=== PATIENT | female | born 1945 | race Asian ===

== ENCOUNTER 2017-05-20 08:50 | Outpatient (CLI) | payer MEDICARE, OTHER | END 2017-05-20 08:51 | disposition home or self-care (01) | LOC: DI 08:50 | DX: R01.1 Cardiac murmur, unspecified (principal); I51.7 Cardiomegaly | CPT/HCPCS: 93306 ==

== ENCOUNTER 2018-12-25 06:41 | Day surgery (SDC) | payer MEDICARE, OTHER ==
[~2018-12-25 06:41] MED LIST: CYCLOPENTOLATE 1% OPHTH DROPS 2 ML ONE; KETOROLAC 0.45% OPHTH DROPS ONE; PHENYLEPHRINE 2.5% OPHTH 2 ML DROPS ONE; PROPARACAINE 0.5% OPHTH DROPS 15 ML ONE
[2018-12-25] MEDS ORDERED: fentaNYL 100 MCG/2 ML VIAL IVP ONE (06:42)
[2018-12-25] MEDS ORDERED: MIDAZOLAM 2 MG/2 ML VIAL IVP ONE (06:42)
[2018-12-25] MEDS ORDERED: KETOROLAC 0.45% OPHTH DROPS RIGHTEYE ONE (07:00)
[2018-12-25] MEDS ORDERED: CYCLOPENTOLATE 1% OPHTH DROPS 2 ML RIGHTEYE ONE (07:00)
[2018-12-25] MEDS ORDERED: PHENYLEPHRINE 2.5% OPHTH 2 ML DROPS RIGHTEYE ONE (07:00)
[2018-12-25] MEDS ORDERED: PROPARACAINE 0.5% OPHTH DROPS 15 ML RIGHTEYE ONE (07:00)
[2018-12-25] MEDS ORDERED: LACTATED RINGERS 500 ML IV ONE (07:05)
--- NOTE | 2018-12-25 07:27 | ANESTHESIA ---
Pre-Anesthesia VS, & Labs - Diagnosis Right senile combined cataract - Procedure Right phaco with IOL implant Vital Signs: Temp Pulse Resp BP Pulse Ox 36.4 C L 61 16 161/77 H 100 12/25/18 06:54 12/25/18 06:54 12/25/18 06:54 12/25/18 06:54 12/25/18 06:54 Height 5 ft 4 in Weight (kg) 69 kg - NPO >8 hours - Is Patient ?: No - Lab Results Current Lab Results: Laboratory Tests 12/25/18 07:05: POC Whole Bld Glucose 99 Lab results reviewed: Yes Home Medications and Allergies Amlodipine Besylate 10 mg PO DAILY 10/09/18 Aspirin [Aspirin EC] 81 mg PO DAILY 10/09/18 Simvastatin 40 mg PO DAILY 10/09/18 metFORMIN [Glucophage] 500 mg PO ONCE 10/09/18 Allergies/Adverse Reactions: Allergies Allergy/AdvReac Type Severity Reaction Status Date / Time No Known Drug Allergies Allergy Verified 10/09/18 09:07 Anes History & Medical History - Anesthetic History Anesthesia Complications: reports: No previous complications Family history of Anesthesia Complications: Denies Family history of Malignant Hyperthermia: Denies - Medical History Cardiovascular: reports: Hypertension, High cholesterol Pulmonary: reports: Tuberculosis Gastrointestinal: reports: None Urinary: reports: None Neuro: reports: None Musculoskeletal: reports: Osteoarthritis Endocrine/Autoimmune: reports: Type 2 diabetes Skin: reports: None Smoking Status: Former smoker Psychosocial: reports: No issues indicated, Anxiety Exam General: Alert, Oriented x3, Cooperative Dental: Dentures full Upper, Dentures full Lower Mouth Opening: Greater than 4 Fingerbreadths Neck Mobility: Reduced Mallampati classification: II Thyromental Distance: greater than 6 cm Respiratory: Lungs clear Cardiovascular: Regular rate Neurological: Normal speech Mental/Cognitive Status: Alert/Oriented X3 Cognitive Status: Within normal limits Plan Anesthesia Type: MAC Consent for Procedure(s) Verified and Reviewed: Yes Code Status: Attempt Resuscitation ASA classification: 2-Mild systemic disease Is this case an emergency?: No
[2018-12-25] MEDS ORDERED: BSS/LIDOCAINE/EPINEPHRINE 1 ML SYRINGE IO ONE ×2 (08:10)
[2018-12-25] MEDS ORDERED: VANCOMYCIN OPHTHALMI 8MG/0.8ML 8 MG/0.8 ML SYRINGE IO ONE (08:10)
[2018-12-25] MEDS ORDERED: BRIMONIDINE 0.2% OPHTH DROPS 5 ML OPTH ONE (08:10)
[2018-12-25] MEDS ORDERED: TRIAMCIN/MOXIFLOX OPHTHALMIC 0.6 ML VIAL IO ONE ×2 (08:10)
[2018-12-25] MEDS ORDERED: EPINEPHrine 1 MG/ML AMP IVP ONE (08:10)
[2018-12-25] MEDS ORDERED: CHONDR SULF/HYALURONATE SYRINGE IO ONE (08:10)
[2018-12-25] MEDS ORDERED: TIMOLOL 0.5% OPHTH DROPS OPTH ONE (08:10)
[2018-12-25 08:41] VITALS: BP 127/64
--- NOTE | 2018-12-25 09:48 | OPERATIVE REPORT ---
DATE OF SERVICE: 12/25/2018 Physician: Melquiades Burton MD PREOPERATIVE DIAGNOSIS: Visually significant cataract, right eye. This was her second cataract surg jackie. Cataract surgery on the left eye was performed on 10/09/2018. POSTOPERATIVE DIAGNOSIS: Visually significant cataract, right eye. This was her second cataract katrin uzma. Cataract surgery on the left eye was performed on 10/09/2018. PROCEDURE: Phacoemulsification with posterior chamber intraocular lens implant, right eye. SURGEON: Melquiades Burton MD ANESTHESIA: Monitored anesthesia care. COMPLICATIONS: None. OPERATIVE INDICATIONS: This is a 73-year-old woman with progressive vision loss in the right eye due to 2+ nuclear sclerotic, 1-2+ cortical and trace posterior subcapsular cataract. Best corrected vis ual acuity was 20/70 with glare to 20/150 in the right eye. Indications for surgery were overall dec rease in vision, difficulty reading, difficulty seeing words, closed caption or game scores on TV, di fficulty seeing street signs, difficulty driving in low light or at night, difficulty driving at [place] because of headlights from other vehicles, and difficulty with glare or bright lights in any situat ion. She was consented at length concerning risks and benefits of cataract surgery, after which she expressed a desire to proceed with surgery. OPERATIVE PROCEDURE: Patient was taken into OR #3 and placed under monitored anesthesia care. A katrin gical timeout was conducted confirming the correct patient, correct procedure, and correct surgical s ite. She was given topical anesthesia, then prepped and draped in the usual sterile fashion. The ey e was entered at the 12 and 9 o'clock positions. Intracameral Shugarcaine was injected into the ante rior chamber, followed by Viscoat. A continuous-tear curvilinear capsulorrhexis was performed. The nucleus was hydrodissected and phacoemulsified. The cortex was evacuated using automated infusion an d aspiration. Provisc was injected into the capsular bag, and an 18.5 diopter intraocular lens inser padmini in the bag. Approximately 0.9 mL mixture of triamcinolone, moxifloxacin and vancomycin was injec padmini subconjunctivally in the superior quadrant for infection and inflammation prophylaxis. I and A w as used to evacuate the viscoelastic material. The eye was inflated to physiologic pressure using ba lanced salt solution and found to be watertight. The patient was taken from the operating room in go od condition and given postoperative instructions. TD: 12/25/2018 09:16
== END 2018-12-25 06:42 | disposition home or self-care (01) ==
LOC: SDS 06:41
PROVIDERS: ATTEND Ophthalmology
PROC: 08RJ3JZ Replacement of Right Lens with Synthetic Substitute, Percutaneous Approach (ICD-10-PCS; principal; 2018-12-25 08:00)
DX: H25.811 Combined forms of age-related cataract, right eye (principal); E11.9 Type 2 diabetes mellitus without complications; I10 Essential (primary) hypertension; Z87.891 Personal history of nicotine dependence
CPT/HCPCS: 66984; A9270; J3490; V2632

== ENCOUNTER 2019-04-25 11:34 | Emergency (ER) | payer MEDICARE, OTHER ==
--- NOTE | 2019-04-25 12:16 | ED Physician Documentation ---
PD HPI FOCAL NEURO - Stated complaint Stated Complaint: DIZZINESS/WEAKNESS - Chief complaint Chief Complaint: Neuro - History obtained from History obtained from: Patient - History of Present Illness Timing - onset: Chronic (74-year-old woman with history of diabetes and hypertension presents with subacute complaints of dizziness that is hard for her to describe and weakness. She says that about once a week for several months she gets an episode where she feels weak in the arms and legs, it symmetric. And she feels like she has to stand up and hold onto something for about half an hour and drink a lot of water and then it gets better. She is also had episodic dizziness which is not spinning, at the lightheadedness and after she gets up. Its worse in the morning. She relates this to a medication change that happened a few months ago when she went from a small diabetic pill to a larger diabetic pill. There is no associated chest pain or trouble breathing. She admits to a lot of anxiety and depression that surrounds family issues, a sick , and a grandson. She is also having to spend a lot of money, sending it to family members in the [facility].) Review of Systems Ten Systems: 10 systems reviewed and negative Constitutional: reports: Fatigue. denies: Fever, Chills Cardiac: denies: Chest pain / pressure, Palpitations Respiratory: denies: Dyspnea, Cough GI: reports: Constipation. denies: Abdominal Pain, Nausea, Vomiting, Diarrhea PD PAST MEDICAL HISTORY - Past Medical History Cardiovascular: Hypertension, High cholesterol Respiratory: Tuberculosis Neuro: None Endocrine/Autoimmune: Type 2 diabetes GI: None : None HEENT: Other Psych: None Musculoskeletal: Osteoarthritis Derm: None - Present Medications Home Medications: Ambulatory Orders Medication Instructions Recorded Confirmed Amlodipine Besylate 10 mg PO DAILY 10/09/18 12/24/18 Aspirin [Aspirin EC] 81 mg PO DAILY 10/09/18 12/24/18 Simvastatin 40 mg PO DAILY 10/09/18 12/24/18 metFORMIN [Glucophage] 500 mg PO ONCE 10/09/18 12/24/18 - Allergies Allergies/Adverse Reactions: Allergies Allergy/AdvReac Type Severity Reaction Status Date / Time No Known Drug Allergies Allergy Verified 10/09/18 09:07 - Social History Smoking Status: Former smoker PD ED PE NORMAL - Vitals Vital signs reviewed: Yes - General General: Alert and oriented X 3, No acute distress - HEENT HEENT: PERRL, EOMI, Pharynx benign - Neck Neck: Supple, no meningeal sign, No bony TTP - Cardiac Cardiac: RRR (with some extrsystoles), No murmur - Respiratory Respiratory: No respiratory distress, Clear bilaterally - Abdomen Abdomen: Non tender - Derm Derm: Normal color, Warm and dry - Extremities Extremities: No edema, No calf tenderness / cord - Neuro Neuro: Alert and oriented X 3, 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2 RBC 3.88 L Hgb 12.6 Hct 37.5 MCV 96.6 MCH 32.5 H MCHC 33.6 RDW 12.4 Plt Count 219 MPV 9.1 Neut # (Auto) 2.8 Lymph # (Auto) 1.8 [place] # (Auto) 0.4 Eos # (Auto) 0.1 Baso # (Auto) 0.0 Absolute Nucleated RBC 0.00 Nucleated RBC % 0.0 Sodium 137 Potassium 4.6 Chloride 102 Carbon Dioxide 26 Anion Gap 9.0 BUN 15 Creatinine 1.0 Estimated GFR (MDRD) 54 L Glucose 96 Calcium 9.1 Magnesium 2.3 Total Bilirubin 0.5 AST 36 ALT 22 Alkaline Phosphatase 62 Troponin I High Sens 4.4 Total Protein 7.8 Albumin 4.4 Globulin 3.4 Albumin/Globulin Ratio 1.3 Lipase 41 PD MEDICAL DECISION MAKING - ED course ED course: 74-year-old woman with long-standing orthostatic Presyncope and some episodic weakness that sounds most like panic attacks than anything else. Her examination and EKG are normal as is her labs/electrolytes. Departure - Departure Disposition: 01 Home, Self Care Clinical Impression: Dizziness, Anxiety Hypertension Qualifiers: Hypertension type: essential hypertension Qualified Code(s): I10 - Essential (primary) hypertension Condition: Good Record reviewed to determine appropriate education?: Yes Instructions: ED Dizziness UKO Comments: Your symptoms are not consistent with stroke. Your examination and labs are normal as isyour EKG; return for new or worsening symptoms. I recommend following up with your physician in discussing your medications since they may be related to your new symptoms, also considered treatment for anxiety and depression.
[2019-04-25 12:32] LABS: BASOPHILS % (AUTO) 0.8 %; EOSINOPHILS # (AUTO) 0.1 10^3/uL (0.0-0.7); EOSINOPHILS % (AUTO) 2.3 %; HGB - HEMOGLOBIN 12.6 g/dL (12.0-16.0); LYMPHOCYTES # (AUTO) 1.8 10^3/uL (1.5-3.5); LYMPHOCYTES % (AUTO) 34.6 %; MEAN CORPUSCULAR HEMOGLOBIN 32.5 pg (27.0-31.0); MEAN CORPUSCULAR HGB CONC 33.6 g/dL (32.0-36.0); MEAN CORPUSCULAR VOLUME 96.6 fL (81.0-99.0); MEAN PLATELET VOLUME 9.1 fL (7.9-10.8); MONOCYTES # (AUTO) 0.4 10^3/uL (0.0-1.0); MONOCYTES % (AUTO) 7.6 %; NEUTROPHILS # (AUTO) 2.8 10^3/uL (1.5-6.6); NEUTROPHILS % (AUTO) 54.3 %; PLT - PLATELET COUNT 219 10^3/uL (130-450); RED BLOOD COUNT 3.88 10^6/uL (4.20-5.40); RED CELL DISTRIBUTION WIDTH 12.4 % (12.0-15.0); WHITE BLOOD COUNT 5.2 x10^3/uL (4.8-10.8)
[2019-04-25 12:38] VITALS: BP 133/73
[2019-04-25 12:51] LABS: ALBUMIN 4.4 g/dL (3.2-5.5); ALBUMIN/GLOBULIN RATIO 1.3 (1.0-2.2); BILIRUBIN,TOTAL 0.5 mg/dL (0.2-1.0); CALCIUM 9.1 mg/dL (8.5-10.3); MAGNESIUM 2.3 mg/dL (1.7-2.8); TOTAL PROTEIN 7.8 g/dL (6.7-8.2)
== END 2019-04-25 12:54 | disposition home or self-care (01) ==
LOC: ED 11:34
DX: R42 Dizziness and giddiness (principal); F41.9 Anxiety disorder, unspecified; I10 Essential (primary) hypertension; E11.9 Type 2 diabetes mellitus without complications; Z79.84 Long term (current) use of oral hypoglycemic drugs; Z79.82 Long term (current) use of aspirin; Z87.891 Personal history of nicotine dependence
CPT/HCPCS: 36415; 80053; 83690; 83735; 84484; 85025; 93005; 99284

== ENCOUNTER 2021-01-16 05:50 | Outpatient (CLI) | payer MEDICARE, OTHER | END 2021-01-16 05:51 | disposition critical access hospital (66) | LOC: EMS 05:50 | DX: M79.672 Pain in left foot (principal) | CPT/HCPCS: A0425; A0429 ==

== ENCOUNTER 2021-01-16 06:07 | Emergency (ER) | payer MEDICARE, OTHER ==
[2021-01-16 06:16] VITALS: BP 134/75
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
== END 2021-01-16 07:27 | disposition home or self-care (01) ==
LOC: EDUNIT# → ED 06:07
DX: M62.831 Muscle spasm of calf (principal); F32.9 Major depressive disorder, single episode, unspecified; I10 Essential (primary) hypertension; E11.9 Type 2 diabetes mellitus without complications; Z79.84 Long term (current) use of oral hypoglycemic drugs; Z79.82 Long term (current) use of aspirin; Z87.891 Personal history of nicotine dependence
CPT/HCPCS: 99282; 99284

== ENCOUNTER 2023-11-20 08:00 | Outpatient (CLI) | payer MEDICARE, OTHER | END 2023-11-20 23:59 | disposition home or self-care (01) | LOC: LAB.N 08:00 | PROVIDERS: ATTEND Physician Assistant Medical | DX: J04.0 Acute laryngitis (principal); R05.8 Other specified cough ==